=== PATIENT | female | born 1985 | race Two or more races ===

== ENCOUNTER 2018-07-03 09:27 | Emergency (ER) | payer BC ==
[~2018-07-03] VITALS: Ht 162.6 cm; Wt 69.7 kg
[~2018-07-03 09:27] MED LIST: NO HOME MEDS; POTA20TA19 PO; ZOF4T PO
[2018-07-03 09:36] VITALS: BP 127/104
[2018-07-03] MEDS ORDERED: CHLO473M3 PO (09:53)
[2018-07-03] MEDS ORDERED: CLIN300C85 PO (09:53)
[2018-07-03] MEDS ORDERED: HYDR-565 PO (09:53)
== END 2018-07-03 10:41 | disposition home or self-care (01) ==
LOC: ER 09:27
DX: K05.20 Aggressive periodontitis, unspecified (principal); K21.9 Gastro-esophageal reflux disease without esophagitis; Z79.899 Other long term (current) drug therapy
CPT/HCPCS: 99283

== ENCOUNTER 2020-01-23 08:53 | Emergency (ER) | payer BC ==
[~2020-01-23] VITALS: Ht 162.6 cm; Wt 75.0 kg
[~2020-01-23 08:53] MED LIST changes: +CHLO473M3 PO; +CLIN-97 PO
[2020-01-23 08:56] VITALS: BP 161/131
== END 2020-01-23 10:25 | disposition home or self-care (01) ==
LOC: ER 08:53
DX: J06.9 Acute upper respiratory infection, unspecified (principal); K21.9 Gastro-esophageal reflux disease without esophagitis; Z98.890 Other specified postprocedural states; Z79.899 Other long term (current) drug therapy
CPT/HCPCS: 71045; 99283

== ENCOUNTER 2021-11-05 14:32 | Emergency (ER) | payer BC ==
[~2021-11-05] VITALS: Ht 162.6 cm; Wt 59.1 kg
[~2021-11-05 14:32] MED LIST changes: +POTA-207 PO; -POTA20TA19 PO
--- NOTE | 2021-11-05 15:00 | NUR ---
PT HERE FOR SART EXAM, [facility] INTERVIEWING PT. 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 CASE# [id number]
[2021-11-05 16:05] VITALS: BP 171/135
[2021-11-05] MEDS ORDERED: azithromycin 250mg tablet PO ONE (16:40)
[2021-11-05] MEDS ORDERED: TINIDAZOLE 500 MG TABLET PO ONE (16:40)
[2021-11-05] MEDS: CefTRIAXone 500MG IM Kit w/LIDOcaine (for pt below or = to 150kg) IM ONE (16:40)
[2021-11-05] MEDS ORDERED: LEVONORGESTREL 1.5MG tablet 1.5 MG TABLET PO ONE (16:40)
[2021-11-05] MEDS ORDERED: ondansetron 4mg rapidly disintigrating tab PO ONE (16:45)
[2021-11-05] MEDS ORDERED: naproxen 500mg tablet PO ONE (18:10)
[2021-11-05] MEDS ORDERED: CefTRIAXone 250MG IM Kit w/LIDOcaine IM ONE (19:05)
[2021-11-05] MEDS ORDERED: iohexol 350MG/ML 100ml bottle IV ONE (20:11)
== END 2021-11-05 21:39 | disposition home or self-care (01) ==
LOC: ER 14:33 → EEVIPCON 14:33 → ER 21:39
DX: S50.11XA Contusion of right forearm, initial encounter (principal); S00.83XA Contusion of other part of head, initial encounter; S09.90XA Unspecified injury of head, initial encounter; T74.21XA Adult sexual abuse, confirmed, initial encounter; R55 Syncope and collapse; K21.9 Gastro-esophageal reflux disease without esophagitis; Z98.890 Other specified postprocedural states; Z79.2 Long term (current) use of antibiotics; Z79.899 Other long term (current) drug therapy; Z98.891 History of uterine scar from previous surgery; Y93.89 Activity, other specified; Y92.89 Other specified places as the place of occurrence of the external cause; Y99.8 Other external cause status
CPT/HCPCS: 70498; 71045; 73090; 96372; 99285; J0696; Q9967; 99284

== ENCOUNTER → 2024-04-21 | Outpatient (CLI) | payer BC, OTHER | END | disposition home or self-care (01) | LOC: RAD 13:29 | PROVIDERS: ATTEND Nurse Practitioner Family | DX: M25.531 Pain in right wrist (principal) | CPT/HCPCS: 73200 ==